=== PATIENT | male | born 1960 | race Caucasian/White ===

== ENCOUNTER 2018-03-01 05:47 | Day surgery (SDC) | payer OTHER ==
[~2018-03-01] VITALS: Ht 185.4 cm; Wt 92.0 kg
[~2018-03-01 05:47] MED LIST: Benadryl 50 mg50 MG PO; CARV25 PO; CARV3.125 PO; Cyclobenzaprine5 MG PO; EPINEPHRIN0.3 MG/0.3 IM; EPIPEN 2-P0.3 MG/0.3 IM; FURO40 PO; IBUP800 PO; LANOXIN250 MC1 PO; LISI5 PO; Norco 5-325 Ta1 EACH PO; Pepcid40 MG PO; SPIR25 PO
[2018-03-01] MEDS ORDERED: ROSU10TA PO (08:51)
== END 2018-03-01 10:48 | disposition home or self-care (01) ==
LOC: MHTC 05:47
PROC: 4A023N7 Measurement of Cardiac Sampling and Pressure, Left Heart, Percutaneous Approach (ICD-10-PCS; principal; 2018-03-01)
PROC: B211YZZ Fluoroscopy of Multiple Coronary Arteries using Other Contrast (ICD-10-PCS; principal; 2018-03-01)
DX: R07.9 Chest pain, unspecified (principal); I42.0 Dilated cardiomyopathy; R94.39 Abnormal result of other cardiovascular function study; I50.9 Heart failure, unspecified; Z87.891 Personal history of nicotine dependence
CPT/HCPCS: 93458; 99152; 99153; C1769; C1894; J1644; J2250; J3010; J7030; Q9967

== ENCOUNTER 2021-06-20 10:26 | Emergency (ER) | payer OTHER ==
[~2021-06-20] VITALS: Ht 185.4 cm; Wt 86.2 kg
[~2021-06-20 10:26] MED LIST changes: +ROSU10TA PO
== END 2021-06-20 12:10 | disposition home or self-care (01) ==
LOC: ER 10:26
DX: S81.811A Laceration without foreign body, right lower leg, initial encounter (principal); Z79.899 Other long term (current) drug therapy; W26.9XXA Contact with unspecified sharp object(s), initial encounter
CPT/HCPCS: 12002; 99282-25

== ENCOUNTER 2021-06-23 08:15 | Emergency (ER) | payer OTHER ==
[~2021-06-23] VITALS: Ht 185.4 cm; Wt 86.2 kg
[2021-06-23 09:30] LABS: Albumin, Blood 1.5 g/dL (3.4-5.0); Albumin/Globulin Ratio 0.4 (0.8-1.8); Bilirubin, Total 6.9 mg/dL (0.1-1.0); Bun/Creatinine Ratio 12.3 (12.0-20.0); Calcium, Blood 7.6 mg/dL (8.5-10.1); Creatinine, Blood 1.46 mg/dL (0.60-1.20); Potassium, Blood 4.2 mmol/L (3.5-5.5); Total Protein, Blood 5.5 g/dL (6.4-8.2)
[2021-06-23 10:11] LABS: BASOPHILS ABSOLUTE AUTO 0.05 K/mm3 (0.00-0.23); BASOPHILS PERCENT AUTO 0 % (0-2); EOSINOPHILS ABSOLUTE AUTO 0.03 K/mm3 (0.00-0.68); EOSINOPHILS PERCENT AUTO 0 % (0-6); Hematocrit 30.4 % (37.0-53.0); IMMATURE GRAN ABSOLUTE AUTO 0.09 K/mm3 (0.00-0.10); IMMATURE GRAN PERCENT AUTO 1 % (0-1); LYMPHOCYTES ABSOLUTE AUTO 1.34 K/mm3 (0.84-5.20); LYMPHOCYTES PERCENT AUTO 10 % (21-46); MONOCYTES PERCENT AUTO 8 % (4-13); Mean Corpuscular Volume 103 fL (80-100); Mean Platelet Volume 12.2 fL (9.1-12.4); NEUTROPHILS ABSOLUTE AUTO 11.01 K/mm3 (1.96-9.15); NEUTROPHILS PERCENT AUTO 81 % (41-73); NRBC ABSOLUTE 0.06 K/mm3 (0.00-0.02); NRBC Auto 0.4 /100 WBC (0.0-0.2); Platelet Count 121 K/mm3 (150-400); RDW Coefficient Variation 17.9 % (11.7-14.2); RDW Standard Deviation 66.9 fL (35.1-46.3); Red Blood Cell Count 2.95 M/mm3 (4.30-5.90); White Blood Cell Count 13.62 K/mm3 (4.00-11.30)
[2021-06-23 10:14] LABS: Hemoglobin 11.5 g/dL (13.5-17.5); Mean Corpuscular HGB Conc 37.8 g/dL (31.5-36.5)
== END 2021-06-23 10:00 | disposition left against medical advice (07) ==
LOC: ER 08:15
PROVIDERS: Physician Assistant
DX: R74.01 Elevation of levels of liver transaminase levels (principal); S81.811D Laceration without foreign body, right lower leg, subsequent encounter; Z91.030 Bee allergy status; Z88.5 Allergy status to narcotic agent; Z88.8 Allergy status to other drugs, medicaments and biological substances; Z79.899 Other long term (current) drug therapy
CPT/HCPCS: 36415; 80053; 83690; 85025; 99283; J7030

== ENCOUNTER 2021-06-25 08:47 | Inpatient (IN) | payer OTHER ==
[~2021-06-25] VITALS: Ht 185.4 cm; Wt 92.0 kg
[2021-06-25 10:21] LABS: Albumin, Blood 1.5 g/dL (3.4-5.0); Albumin/Globulin Ratio 0.4 (0.8-1.8); Bilirubin, Total 7.4 mg/dL (0.1-1.0); Calcium, Blood 7.8 mg/dL (8.5-10.1); Creatinine, Blood 1.26 mg/dL (0.60-1.20); Globulin, Blood 4.2 g/dL (2.2-4.0); Potassium, Blood 3.9 mmol/L (3.5-5.5); Total Protein, Blood 5.7 g/dL (6.4-8.2); Troponin I 0.024 ng/mL (0.000-0.040)
[2021-06-25 10:25] LABS: Hematocrit 31.9 % (37.0-53.0); Mean Corpuscular Volume 103 fL (80-100); Mean Platelet Volume 12.1 fL (9.1-12.4); NRBC ABSOLUTE 0.02 K/mm3 (0.00-0.02); NRBC Auto 0.1 /100 WBC (0.0-0.2); Platelet Count 126 K/mm3 (150-400); RDW Coefficient Variation 17.3 % (11.7-14.2); RDW Standard Deviation 65.2 fL (35.1-46.3); Red Blood Cell Count 3.11 M/mm3 (4.30-5.90); White Blood Cell Count 23.33 K/mm3 (4.00-11.30)
[2021-06-25 10:27] LABS: Hemoglobin 12.1 g/dL (13.5-17.5); Mean Corpuscular HGB 38.9 pg (26.0-34.0); Mean Corpuscular HGB Conc 37.9 g/dL (31.5-36.5)
[2021-06-25 10:39] LABS: BAND PERCENT MAN 30 % (0-8); BASOPHILS PERCENT MAN 0 % (0-2); EOSINOPHILS PERCENT MAN 0 % (0-6); LYMPHOCYTES ABSOLUTE MAN 0.46 K/mm3 (0.84-5.20); LYMPHOCYTES PERCENT MAN 2 % (21-46); MONOCYTES ABSOLUTE MAN 0.69 K/mm3 (0.16-1.47); MONOCYTES PERCENT MAN 3 % (4-13); NEUTROPHILS ABSOLUTE MAN 22.16 K/mm3 (1.96-9.15); SEG NEUTROPHILS PERCENT MAN 65 % (41-73); TOTAL CELLS COUNTED 100
[2021-06-25 10:49] LABS: International Normalized Ratio 1.86; Prothrombin Time Results 18.8 Sec (9.7-11.5)
[2021-06-25 11:04] LABS: SARS-Cov-2 (COVID-19) PCR, MMC POSITIVE (NEGATIVE)
[2021-06-25 11:38] LABS: Digoxin (Lanoxin) 0.12 ug/mL (0.80-2.00)
[2021-06-25 15:17] LABS: Source, Urine Clean Catch
[2021-06-25 15:44] LABS: Appearance, Urine Clear (Clear); Blood, Urine 1+ (Neg); Color, Urine Amber (P-Yellow); Glucose Qualitative, Urine Neg (Neg); Ketones, Urine Neg (Neg); Leukocyte Esterase, Urine Neg (Neg); Nitrite, Urine Neg (Neg); Protein, Urine 1+ (Neg); Urobilinogen, Urine 1+ (Normal)
[2021-06-25 15:52] LABS: Bilirubin, Urine 1+ (Neg)
[2021-06-25 16:03] LABS: U Amphetamine Screen Not Detected; U Barbituate Screen Not Detected; U Benzodiazapine Screen Not Detected; U Buprenorphine Screen Not Detected; U Cannabinoids Screen Not Detected; U Cocaine Screen Not Detected; U Methadone Screen Not Detected; U Methamphetamine Screen Not Detected; U Opiates Screen DETECTED; U Oxycodone Screen Not Detected; U Phencyclidine Screen Not Detected; U Propoxyphene Screen Not Detected
[2021-06-25 16:10] LABS: Bacteria Rare /hpf; Red Blood Cells, Urine 0-2 /hpf (0-2); Squamous Epithelial Cells Rare /hpf (Few)
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
[2021-06-26 04:00] LABS: BASOPHILS ABSOLUTE AUTO 0.02 K/mm3 (0.00-0.23); BASOPHILS PERCENT AUTO 0 % (0-2); EOSINOPHILS ABSOLUTE AUTO 0.04 K/mm3 (0.00-0.68); EOSINOPHILS PERCENT AUTO 0 % (0-6); Hematocrit 27.2 % (37.0-53.0); Hemoglobin 10.2 g/dL (13.5-17.5); IMMATURE GRAN ABSOLUTE AUTO 0.19 K/mm3 (0.00-0.10); IMMATURE GRAN PERCENT AUTO 1 % (0-1); LYMPHOCYTES PERCENT AUTO 12 % (21-46); MONOCYTES ABSOLUTE AUTO 1.28 K/mm3 (0.16-1.47); MONOCYTES PERCENT AUTO 8 % (4-13); Mean Corpuscular HGB 39.1 pg (26.0-34.0); Mean Corpuscular HGB Conc 37.5 g/dL (31.5-36.5); Mean Corpuscular Volume 104 fL (80-100); Mean Platelet Volume 12.2 fL (9.1-12.4); NEUTROPHILS ABSOLUTE AUTO 13.29 K/mm3 (1.96-9.15); NEUTROPHILS PERCENT AUTO 79 % (41-73); Platelet Count 117 K/mm3 (150-400); RDW Coefficient Variation 17.8 % (11.7-14.2); RDW Standard Deviation 68.3 fL (35.1-46.3); Red Blood Cell Count 2.61 M/mm3 (4.30-5.90); White Blood Cell Count 16.82 K/mm3 (4.00-11.30)
[2021-06-26 04:14] LABS: International Normalized Ratio 1.7; Prothrombin Time Results 17.2 Sec (9.7-11.5)
[2021-06-26 04:31] LABS: Albumin, Blood 1.2 g/dL (3.4-5.0); Albumin/Globulin Ratio 0.3 (0.8-1.8); Bilirubin, Total 6.4 mg/dL (0.1-1.0); Bun/Creatinine Ratio 20.8 (12.0-20.0); Calcium, Blood 7.6 mg/dL (8.5-10.1); Creatinine, Blood 1.3 mg/dL (0.60-1.20); Globulin, Blood 3.6 g/dL (2.2-4.0); Magnesium, Blood 1.5 mg/dL (1.6-2.4); Potassium, Blood 4.1 mmol/L (3.5-5.5); Total Protein, Blood 4.8 g/dL (6.4-8.2)
--- NOTE | 2021-06-26 06:08 | NUR ---
SHIFT SUMMARY NO ACUTE CHANGES THIS SHIFT. VSS. TELE READS SR 80'S, AND O2 SATS MAINTAINING OVER 95% ON RA. 03/27 PAIN IN RIGHT LEG MANAGED PER EMAR. MORE PAIN WHILE WEIGHT BEARING THAN AT REST. PT ALERT AND ORIENTED X4. DR GILES GAVE ORDERS FOR WOUND CARE ON RLE. HYDROGEL AT WOUND BASE WITH EXUDRY AND KERLEX WRAP. PT SLEPT THROUGH MOST OF NIGHT. LEFT IN BED RESTING WITH CALL ALARM AT SIDE
--- NOTE | 2021-06-26 09:00 | NUR ---
CARE ASSUMPTION PATIENT IS A/OX4. VSS. SOFT BP, WHICH PATIENT STATES IS NORMAL. TELE SR. SPO2 >90% ON RA. PATIENT REPORTS NO CHEST PAIN OR SOB. PATIENT REPORTS PAIN TO RIGHT LEG, PROVIDED PAIN MEDICATION PER EMAR THAT HELPED RELIEVE THE PAIN. PATIENT DRESSING ON RIGHT LEG WOUND WAS CHANGED DUE TO SATURATION. THE WOUND WAS CLEANED AND DRESSING REAPPLIED. THE DRAINAGE WAS YELLOW. CALL LIGHT WITHIN REACH. WILL CONTINUE TO MONITOR AND PROVIDE CARE.
[2021-06-26 09:11] LABS: HBSAG SCREEN Negative (Negative); HEP A AB, IGM Negative (Negative); HEP B CORE AB, IGM Negative (Negative); HEP B CORE AB, TOT Negative (Negative); HEP C VIRUS AB <0.1 (0.0-0.9)
--- NOTE | 2021-06-26 11:12 | NUR ---
REPORT TO MED NURSE THIS RN GAVE REPORT TO MED RN. PATIENT BELONGINGS GATHERED AND TAKEN WITH PATIENT UP TO MED FLOOR.
--- NOTE | 2021-06-26 11:43 | NUR ---
TRANSPORT PATIENT WENT TO MEDICAL FLOOR VIA WHEELCHAIR WITH ALL BELONGINGS.
--- NOTE | 2021-06-26 16:03 | NUR ---
SHIFT SUMMARY PATIENT TRANSFERRED FROM PCU THIS AFTERNOON. PATIENT SETTLED INTO ROOM. PATIENT DENIES PAIN, NAUSEA, AND SHORTNESS OF BREATH. PATIENT IS A SBA TO THE BATHROOM. PATIENT DOES INDEPENDENTLY USE THE URNINAL. PATIENT IS EATING AND DRINKING WELL. PATIENT IS PLEASANT AND COOPERATIVE WITH CARE. DRESSING TO LOWER RIGHT LEG IS DRY AND INTACT.
[2021-06-27 01:22] LABS: BASOPHILS ABSOLUTE AUTO 0.02 K/mm3 (0.00-0.23); BASOPHILS PERCENT AUTO 0 % (0-2); EOSINOPHILS PERCENT AUTO 1 % (0-6); Hematocrit 26.5 % (37.0-53.0); Hemoglobin 9.9 g/dL (13.5-17.5); IMMATURE GRAN ABSOLUTE AUTO 0.16 K/mm3 (0.00-0.10); IMMATURE GRAN PERCENT AUTO 1 % (0-1); LYMPHOCYTES ABSOLUTE AUTO 2.24 K/mm3 (0.84-5.20); LYMPHOCYTES PERCENT AUTO 15 % (21-46); MONOCYTES ABSOLUTE AUTO 1.14 K/mm3 (0.16-1.47); MONOCYTES PERCENT AUTO 8 % (4-13); Mean Corpuscular HGB Conc 37.4 g/dL (31.5-36.5); Mean Corpuscular Volume 104 fL (80-100); NEUTROPHILS ABSOLUTE AUTO 10.92 K/mm3 (1.96-9.15); NEUTROPHILS PERCENT AUTO 75 % (41-73); RDW Standard Deviation 65.4 fL (35.1-46.3); Red Blood Cell Count 2.54 M/mm3 (4.30-5.90); White Blood Cell Count 14.58 K/mm3 (4.00-11.30)
[2021-06-27 01:31] LABS: Mean Platelet Volume 11.7 fL (9.1-12.4); Platelet Count 121 K/mm3 (150-400)
[2021-06-27 01:37] LABS: Albumin, Blood 1.2 g/dL (3.4-5.0); Anion Gap 6 mmol/L (6-16); Blood Urea Nitrogen 30 mg/dL (8-24); Bun/Creatinine Ratio 28.6 (12.0-20.0); CO2, Blood 26 mmol/L (21-32); Calcium, Blood 7.4 mg/dL (8.5-10.1); Chloride, Blood 101 mmol/L (98-108); Creatinine, Blood 1.05 mg/dL (0.60-1.20); Glomerular Filtration Rate >60 (60-); Glucose, Blood 115 mg/dL (70-99); Phosphorus, Blood 1.9 mg/dL (2.5-4.9); Potassium, Blood 3.7 mmol/L (3.5-5.5); Sodium, Blood 133 mmol/L (136-145)
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
[2021-06-27] MEDS ORDERED: CEPH500 PO (14:46)
[2021-06-27] MEDS ORDERED: CARV6.25 PO (15:41)
--- NOTE | 2021-06-27 16:43 | NUR ---
DISCHARGE PATIENT WAS DISCHARGED VIA WHEELCHAIR THIS SHIFT AT 1530. PATIENT VERBALIZED UNDERSTANDING OF INSTRUCTIONS AND THEIR MEDICATIONS. WOUND CARE WAS PROVIDED TO THE PATIENT PRIOR TO THEIR DEPARTURE. WOUND CARE SUPPLIES WERE SENT HOME WITH THE PATIENT WELL.
== END 2021-06-27 16:41 | disposition home or self-care (01) | DRG 871 ==
LOC: ER 08:47 → PCU 16:08 → MEDS 16:08 → PCU 17:03 → MEDS 06-26 11:44
PROVIDERS: Family Medicine; Internal Medicine Gastroenterology; Nurse Practitioner Acute Care; Pharmacist; Physician Assistant; ADMIT Internal Medicine
PROC: 8E0ZXY6 Isolation (ICD-10-PCS; principal; 2021-06-25)
DX: A41.9 Sepsis, unspecified organism (principal); U07.1 COVID-19; L03.115 Cellulitis of right lower limb; I85.10 Secondary esophageal varices without bleeding; E87.1 Hypo-osmolality and hyponatremia; N17.9 Acute kidney failure, unspecified; I50.32 Chronic diastolic (congestive) heart failure; I11.0 Hypertensive heart disease with heart failure; R65.20 Severe sepsis without septic shock; K70.31 Alcoholic cirrhosis of liver with ascites; Z98.890 Other specified postprocedural states; Z87.891 Personal history of nicotine dependence; Z98.1 Arthrodesis status; Z88.5 Allergy status to narcotic agent; Z91.030 Bee allergy status; Z79.899 Other long term (current) drug therapy
CPT/HCPCS: 36415; 71046; 73590; 73700; 74177; 76705; 80053; 80069; 80074; 80162; 80202; 81001; 82105; 82248; 83605; 83690; 83735; 84484; 85025; 85610; 86317; 86704; 86708; 86803; 87040; 87340; 93005; 93010; 94762; 96361; 96365-59; 96366; 96367; 96375; 99283; 99285-25; A9270; J0696; J1170; J1644; J2543; J3010; J3370; J3475; J7030; J7050; J7120; Q9967; U0004

== ENCOUNTER → 2021-07-06 | Outpatient (CLI) | payer OTHER ==
[~2021-07-06] MED LIST changes: +CARV6.25 PO; +CEPH500 PO
== END ==
LOC: LAB 08:45 → LAB SHORT 08:45
DX: R30.0 Dysuria (principal); Z88.5 Allergy status to narcotic agent; Z91.038 Other insect allergy status; Z91.048 Other nonmedicinal substance allergy status
CPT/HCPCS: 87086

== ENCOUNTER → 2021-07-09 | Outpatient (CLI) | payer OTHER | END | disposition home or self-care (01) | LOC: LAB 17:40 → LAB SHORT 17:40 | DX: S81.801D Unspecified open wound, right lower leg, subsequent encounter (principal) | CPT/HCPCS: 87070; 87075; 87205 ==

== ENCOUNTER 2021-07-12 06:25 | Day surgery (SDC) | payer OTHER | END 2021-07-12 22:53 | disposition home or self-care (01) | LOC: WOUND 06:25 | DX: S81.801A Unspecified open wound, right lower leg, initial encounter (principal); X58.XXXA Exposure to other specified factors, initial encounter; I73.9 Peripheral vascular disease, unspecified | CPT/HCPCS: A9270; G0463 ==

== ENCOUNTER 2021-07-19 05:59 | Day surgery (SDC) | payer OTHER | END 2021-07-19 23:23 | disposition home or self-care (01) | LOC: WOUND 05:59 | DX: S81.801A Unspecified open wound, right lower leg, initial encounter (principal); X58.XXXA Exposure to other specified factors, initial encounter; I73.9 Peripheral vascular disease, unspecified; I87.2 Venous insufficiency (chronic) (peripheral) | CPT/HCPCS: A9270 ==

== ENCOUNTER 2021-07-26 04:57 | Day surgery (SDC) | payer OTHER | END 2021-07-26 22:45 | disposition home or self-care (01) | LOC: WOUND 04:57 | DX: S81.801A Unspecified open wound, right lower leg, initial encounter (principal); X58.XXXA Exposure to other specified factors, initial encounter; I73.9 Peripheral vascular disease, unspecified; I87.2 Venous insufficiency (chronic) (peripheral) | CPT/HCPCS: G0463 ==

== ENCOUNTER 2021-08-16 04:17 | Day surgery (SDC) | payer OTHER | END 2021-08-16 22:56 | disposition home or self-care (01) | LOC: WOUND 04:17 | DX: L97.912 Non-pressure chronic ulcer of unspecified part of right lower leg with fat layer exposed (principal); I87.311 Chronic venous hypertension (idiopathic) with ulcer of right lower extremity; I73.9 Peripheral vascular disease, unspecified; I87.2 Venous insufficiency (chronic) (peripheral) | CPT/HCPCS: A9270; G0463 ==

== ENCOUNTER 2021-08-24 05:45 | Day surgery (SDC) | payer OTHER ==
[~2021-08-24 05:45] MED LIST changes: -EPINEPHRIN0.3 MG/0.3 IM; +EPIPEN0.3 MG/0.3 IM
== END 2021-08-24 22:55 | disposition home or self-care (01) ==
LOC: WOUND 05:45
DX: I87.311 Chronic venous hypertension (idiopathic) with ulcer of right lower extremity (principal); L97.912 Non-pressure chronic ulcer of unspecified part of right lower leg with fat layer exposed; I87.2 Venous insufficiency (chronic) (peripheral)
CPT/HCPCS: G0463

== ENCOUNTER 2021-08-30 04:39 | Day surgery (SDC) | payer OTHER ==
[~2021-08-30 04:39] MED LIST changes: +EPINEPHRIN0.3 MG/0.3 IM; -EPIPEN0.3 MG/0.3 IM
== END 2021-08-30 22:53 | disposition home or self-care (01) ==
LOC: WOUND 04:39
DX: L97.912 Non-pressure chronic ulcer of unspecified part of right lower leg with fat layer exposed (principal); I87.311 Chronic venous hypertension (idiopathic) with ulcer of right lower extremity; I73.9 Peripheral vascular disease, unspecified; I87.2 Venous insufficiency (chronic) (peripheral)
CPT/HCPCS: A9270; G0463

== ENCOUNTER 2021-09-15 11:51 | Inpatient (IN) | payer OTHER ==
[~2021-09-15] VITALS: Ht 185.4 cm; Wt 85.7 kg
[~2021-09-15 11:51] MED LIST changes: -EPINEPHRIN0.3 MG/0.3 IM; +EPIPEN0.3 MG/0.3 IM
[2021-09-15 12:33] LABS: BASOPHILS ABSOLUTE AUTO 0.07 K/mm3 (0.00-0.23); BASOPHILS PERCENT AUTO 1 % (0-2); EOSINOPHILS ABSOLUTE AUTO 0.03 K/mm3 (0.00-0.68); EOSINOPHILS PERCENT AUTO 0 % (0-6); Hematocrit 38.2 % (37.0-53.0); Hemoglobin 13.8 g/dL (13.5-17.5); IMMATURE GRAN ABSOLUTE AUTO 0.03 K/mm3 (0.00-0.10); IMMATURE GRAN PERCENT AUTO 0 % (0-1); LYMPHOCYTES PERCENT AUTO 21 % (21-46); MONOCYTES ABSOLUTE AUTO 1.08 K/mm3 (0.16-1.47); MONOCYTES PERCENT AUTO 9 % (4-13); Mean Corpuscular HGB 35.4 pg (26.0-34.0); Mean Corpuscular HGB Conc 36.1 g/dL (31.5-36.5); Mean Corpuscular Volume 98 fL (80-100); Mean Platelet Volume 11.2 fL (9.1-12.4); NEUTROPHILS ABSOLUTE AUTO 8.05 K/mm3 (1.96-9.15); NEUTROPHILS PERCENT AUTO 68 % (41-73); Platelet Count 107 K/mm3 (150-400); RDW Coefficient Variation 14.9 % (11.7-14.2); RDW Standard Deviation 53.7 fL (35.1-46.3); White Blood Cell Count 11.76 K/mm3 (4.00-11.30)
[2021-09-15 12:53] LABS: International Normalized Ratio 1.73; Prothrombin Time Results 17.5 Sec (9.7-11.5)
[2021-09-15 12:58] LABS: Alanine Aminotransfer (ALT/SGP 66 U/L (12-78); Albumin, Blood 1.8 g/dL (3.4-5.0); Albumin/Globulin Ratio 0.3 (0.8-1.8); Alk Phos 369 U/L (50-136); Anion Gap 8 mmol/L (6-16); Aspartate Aminotrans (AST/SGOT 264 U/L (12-37); Bilirubin, Total 4.7 mg/dL (0.1-1.0); Blood Urea Nitrogen 5 mg/dL (8-24); Bun/Creatinine Ratio 6.5 (12.0-20.0); CO2, Blood 28 mmol/L (21-32); Calcium, Blood 7.7 mg/dL (8.5-10.1); Chloride, Blood 101 mmol/L (98-108); Creatinine, Blood 0.76 mg/dL (0.60-1.20); Globulin, Blood 6.2 g/dL (2.2-4.0); Glomerular Filtration Rate >60 (60-); Glucose, Blood 113 mg/dL (70-99); Potassium, Blood 3.3 mmol/L (3.5-5.5); Sodium, Blood 137 mmol/L (136-145)
[2021-09-15 14:10] LABS: Source, Urine Clean Catch
[2021-09-15 14:14] LABS: Appearance, Urine Hazy (Clear); Blood, Urine 1+ (Neg); Color, Urine Brown (P-Yellow); Glucose Qualitative, Urine Neg (Neg); Ketones, Urine 1+ (Neg); Leukocyte Esterase, Urine 1+ (Neg); Nitrite, Urine Pos (Neg); Protein, Urine 2+ (Neg); Specific Gravity, Urine 1.015 (1.003-1.022); Urobilinogen, Urine 3+ (Normal)
[2021-09-15 14:33] LABS: Bilirubin, Urine 3+ (Neg)
[2021-09-15 14:34] LABS: Bacteria Mod /hpf; Squamous Epithelial Cells Rare /hpf (Few)
[2021-09-15 14:35] LABS: Amorphous Light (0-Heavy); Granular Casts 0-2 /lpf (0); Hyaline Casts 0-2 /lpf (0-2); Mucus Heavy (0-Heavy)
[2021-09-15] MEDS ORDERED: FLUTICASONE P15.8 M1 (21:15)
[2021-09-15] MEDS ORDERED: METO2.5 PO (21:16)
[2021-09-16 04:54] LABS: BASOPHILS ABSOLUTE AUTO 0.06 K/mm3 (0.00-0.23); BASOPHILS PERCENT AUTO 1 % (0-2); EOSINOPHILS ABSOLUTE AUTO 0.07 K/mm3 (0.00-0.68); EOSINOPHILS PERCENT AUTO 1 % (0-6); Hematocrit 29.7 % (37.0-53.0); Hemoglobin 11.1 g/dL (13.5-17.5); IMMATURE GRAN ABSOLUTE AUTO 0.05 K/mm3 (0.00-0.10); IMMATURE GRAN PERCENT AUTO 0 % (0-1); LYMPHOCYTES ABSOLUTE AUTO 3.12 K/mm3 (0.84-5.20); LYMPHOCYTES PERCENT AUTO 24 % (21-46); MONOCYTES PERCENT AUTO 10 % (4-13); Mean Corpuscular HGB Conc 37.4 g/dL (31.5-36.5); Mean Corpuscular Volume 96 fL (80-100); Mean Platelet Volume 11.5 fL (9.1-12.4); NEUTROPHILS PERCENT AUTO 65 % (41-73); Platelet Count 86 K/mm3 (150-400); RDW Coefficient Variation 15.4 % (11.7-14.2); RDW Standard Deviation 53.6 fL (35.1-46.3); Red Blood Cell Count 3.08 M/mm3 (4.30-5.90)
--- NOTE | 2021-09-16 06:30 | NUR ---
PATIENT HAS HAD AN UNEVENTFUL NIGHT. ARRIVED FROM ER NEEDING TWO ROUNDS OF k+. COULDN'T TOLERATE AT THE RATE OF 50 DECREASED RATE TO 25 PATIENT WAS ABLE TO TOLERATE. A7O X4. INDEPENDENT IN ROOM. ABDOMEN SEVERELY DISTENDED. PATIENT IS TO HAVE A PARACENTESIS TODAY. VITALS REVIEWED PATIENTS HEART RATE IS MILDLY ELEVATED. CALL LIGHT IN REACH BED IN LOWEST POSITION.
[2021-09-16 06:47] LABS: Alanine Aminotransfer (ALT/SGP 43 U/L (12-78); Albumin, Blood 1.7 g/dL (3.4-5.0); Albumin/Globulin Ratio 0.4 (0.8-1.8); Alk Phos 269 U/L (50-136); Anion Gap 10 mmol/L (6-16); Aspartate Aminotrans (AST/SGOT 192 U/L (12-37); Bilirubin, Total 5.5 mg/dL (0.1-1.0); Blood Urea Nitrogen 7 mg/dL (8-24); Bun/Creatinine Ratio 7.4 (12.0-20.0); CO2, Blood 25 mmol/L (21-32); Calcium, Blood 7.2 mg/dL (8.5-10.1); Chloride, Blood 104 mmol/L (98-108); Creatinine, Blood 0.95 mg/dL (0.60-1.20); Globulin, Blood 4.7 g/dL (2.2-4.0); Glomerular Filtration Rate >60 (60-); Glucose, Blood 63 mg/dL (70-99); Potassium, Blood 3.5 mmol/L (3.5-5.5); Sodium, Blood 139 mmol/L (136-145); Total Protein, Blood 6.4 g/dL (6.4-8.2)
[2021-09-16 10:45] LABS: Automated BF WBC Count 0.128 K/mm3 (0-999); Body Fluid WBC Count 128 /mm3 (0-999)
[2021-09-16 11:16] LABS: Lactate Dehydrogenase, Body Fl 68 U/L
[2021-09-16 11:19] LABS: Albumin, Body Fluid 0.1 g/dL
[2021-09-16 11:32] LABS: RBC Count, Body Fluid 97 /mm3 (0-0)
[2021-09-16 11:57] LABS: Appearance, Body Fluid Hazy (Clear); Color, Body Fluid Yellow (None-Yellow); Total Cell Count, Body Fluid 100
--- NOTE | 2021-09-16 12:10 | NUR ---
Discussed cirrhosis diet recommendations with patient. Discussed benefits of a low sodium diet and reviewed foods high in sodium. Pt reported that he cooks most of his own foods, so discussed alternative seasoning options. Educated pt on elevated kcal and protein needs. Discussed eating several small meals to meet needs iso early satiety. Discussed benefit of a bedtime snack that contains CHO. Average compliance expected.
--- NOTE | 2021-09-16 17:57 | NUR ---
SHIFT SUMMARY PATIENT IS ALERT AND ORIENTATED X3-4. PATIENT HAD AN UNEVENTFUL DAY WITH NO ACUTE EVENTS THIS SHIFT. PATIENT HAS HAD A PARACENTHESIS DONE TODAY WITH 4LITERS OFF. NO ACUTE ISSUES THIS SHIFT. PATIENT IS INDEPENDENT IN THE ROOM. VITAL SIGNS REVIEWED. PATIENTS HR HAS BEEN ELEVATED IN MORNING BUT HAS RESOLVED. CALL LIGHT IN PLACE. WILL MONITOR UNTIL SHIFT CHANGE.
[2021-09-17 05:02] LABS: BASOPHILS ABSOLUTE AUTO 0.06 K/mm3 (0.00-0.23); BASOPHILS PERCENT AUTO 1 % (0-2); EOSINOPHILS ABSOLUTE AUTO 0.19 K/mm3 (0.00-0.68); EOSINOPHILS PERCENT AUTO 2 % (0-6); Hematocrit 29.9 % (37.0-53.0); Hemoglobin 10.7 g/dL (13.5-17.5); IMMATURE GRAN ABSOLUTE AUTO 0.03 K/mm3 (0.00-0.10); IMMATURE GRAN PERCENT AUTO 0 % (0-1); LYMPHOCYTES ABSOLUTE AUTO 2.87 K/mm3 (0.84-5.20); LYMPHOCYTES PERCENT AUTO 27 % (21-46); MONOCYTES ABSOLUTE AUTO 1.09 K/mm3 (0.16-1.47); MONOCYTES PERCENT AUTO 10 % (4-13); Mean Corpuscular HGB 35.2 pg (26.0-34.0); Mean Corpuscular HGB Conc 35.8 g/dL (31.5-36.5); Mean Corpuscular Volume 98 fL (80-100); Mean Platelet Volume 11.7 fL (9.1-12.4); NEUTROPHILS ABSOLUTE AUTO 6.22 K/mm3 (1.96-9.15); NEUTROPHILS PERCENT AUTO 60 % (41-73); Platelet Count 84 K/mm3 (150-400); RDW Coefficient Variation 15.2 % (11.7-14.2); RDW Standard Deviation 54.3 fL (35.1-46.3); Red Blood Cell Count 3.04 M/mm3 (4.30-5.90); White Blood Cell Count 10.46 K/mm3 (4.00-11.30)
--- NOTE | 2021-09-17 06:03 | NUR ---
PT IS A/OX4. INDEPENDENT IS ROOM TO BR. A NEW US PARACENTESIS IS ORDERED FOR 09/17 IN THE AM. HE HAS BEEN NPO SINCE MIDNIGHT. ABDOMINAL DISTENTION/PAIN IS REDUCED AND THE PT STATES THAT HE HAS RELIEF. HE REMAINS ON RA, NO TELE, AND WE'LL CONTINUE TO MONITOR.
[2021-09-17 06:05] LABS: Alanine Aminotransfer (ALT/SGP 38 U/L (12-78); Albumin, Blood 1.5 g/dL (3.4-5.0); Albumin/Globulin Ratio 0.3 (0.8-1.8); Alk Phos 231 U/L (50-136); Anion Gap 6 mmol/L (6-16); Aspartate Aminotrans (AST/SGOT 153 U/L (12-37); Blood Urea Nitrogen 11 mg/dL (8-24); Bun/Creatinine Ratio 10.6 (12.0-20.0); CO2, Blood 28 mmol/L (21-32); Calcium, Blood 7.3 mg/dL (8.5-10.1); Chloride, Blood 104 mmol/L (98-108); Creatinine, Blood 1.04 mg/dL (0.60-1.20); Globulin, Blood 4.4 g/dL (2.2-4.0); Glomerular Filtration Rate >60 (60-); Glucose, Blood 81 mg/dL (70-99); Potassium, Blood 3.4 mmol/L (3.5-5.5); Sodium, Blood 138 mmol/L (136-145); Total Protein, Blood 5.9 g/dL (6.4-8.2)
--- NOTE | 2021-09-17 17:43 | NUR ---
SUMMARY PT SITTING UP IN BED EATING DINNER, PT HAS BEEN PLEASANT AND COOPERATIVE WITH CARE T/O THE DAY, INDEPENDENT IN THE ROOM, PT HAD A PARACENTESIS TODAY, THEY TOOK OFF 4.5 L OF FLUID, PT STATES HE FEELS MUCH BETTER AND IS HOPEFUL TO DC HOME TOMORROW, VSS, WILL CONT TO MONITOR
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
[2021-09-18 05:07] LABS: BASOPHILS ABSOLUTE AUTO 0.04 K/mm3 (0.00-0.23); BASOPHILS PERCENT AUTO 0 % (0-2); EOSINOPHILS ABSOLUTE AUTO 0.18 K/mm3 (0.00-0.68); EOSINOPHILS PERCENT AUTO 2 % (0-6); Hematocrit 30.1 % (37.0-53.0); IMMATURE GRAN ABSOLUTE AUTO 0.05 K/mm3 (0.00-0.10); IMMATURE GRAN PERCENT AUTO 0 % (0-1); LYMPHOCYTES ABSOLUTE AUTO 2.86 K/mm3 (0.84-5.20); LYMPHOCYTES PERCENT AUTO 26 % (21-46); MONOCYTES ABSOLUTE AUTO 1.44 K/mm3 (0.16-1.47); MONOCYTES PERCENT AUTO 13 % (4-13); Mean Corpuscular HGB 35.3 pg (26.0-34.0); Mean Corpuscular HGB Conc 36.5 g/dL (31.5-36.5); Mean Corpuscular Volume 97 fL (80-100); Mean Platelet Volume 12.3 fL (9.1-12.4); NEUTROPHILS ABSOLUTE AUTO 6.63 K/mm3 (1.96-9.15); NEUTROPHILS PERCENT AUTO 59 % (41-73); Platelet Count 79 K/mm3 (150-400); RDW Coefficient Variation 15.3 % (11.7-14.2); RDW Standard Deviation 53.4 fL (35.1-46.3); Red Blood Cell Count 3.12 M/mm3 (4.30-5.90)
[2021-09-18 06:18] LABS: Albumin, Blood 1.6 g/dL (3.4-5.0); Albumin/Globulin Ratio 0.4 (0.8-1.8); Bilirubin, Total 5.2 mg/dL (0.1-1.0); Bun/Creatinine Ratio 9.8 (12.0-20.0); Calcium, Blood 7.3 mg/dL (8.5-10.1); Creatinine, Blood 1.33 mg/dL (0.60-1.20); Globulin, Blood 4.3 g/dL (2.2-4.0); Magnesium, Blood 1.7 mg/dL (1.6-2.4); Potassium, Blood 3.7 mmol/L (3.5-5.5); Total Protein, Blood 5.9 g/dL (6.4-8.2)
[2021-09-18] MEDS ORDERED: SPIR50 PO (11:43)
[2021-09-18] MEDS ORDERED: CARV6.25 PO (11:44)
[2021-09-18] MEDS ORDERED: VISBIOME 112.51 EACH PO (11:45)
[2021-09-18] MEDS ORDERED: FURO20 PO (11:45)
[2021-09-18] MEDS ORDERED: LACT10SY PO (11:46)
== END 2021-09-18 12:05 | disposition home or self-care (01) | DRG 433 ==
LOC: ER 11:51 → ERHOLD 11:52 → MEDS 11:52
PROVIDERS: Family Medicine; Physician Assistant; ADMIT Internal Medicine
PROC: 0W9G3ZX Drainage of Peritoneal Cavity, Percutaneous Approach, Diagnostic (ICD-10-PCS; principal; 2021-09-17)
PROC: 0W9G3ZZ Drainage of Peritoneal Cavity, Percutaneous Approach (ICD-10-PCS; 2021-09-18)
DX: K70.31 Alcoholic cirrhosis of liver with ascites (principal); D68.9 Coagulation defect, unspecified; I50.32 Chronic diastolic (congestive) heart failure; K75.81 Nonalcoholic steatohepatitis (NASH); E83.42 Hypomagnesemia; I11.0 Hypertensive heart disease with heart failure; F10.20 Alcohol dependence, uncomplicated; E87.6 Hypokalemia; E78.5 Hyperlipidemia, unspecified; D64.9 Anemia, unspecified; Z98.1 Arthrodesis status; Z71.41 Alcohol abuse counseling and surveillance of alcoholic; I25.2 Old myocardial infarction; Z98.890 Other specified postprocedural states; Z79.899 Other long term (current) drug therapy
CPT/HCPCS: 36415; 49083; 74176; 80053; 81001; 82042; 82390; 82947; 83615; 83690; 83735; 83880; 84157; 85025; 85610; 86015; 86381; 87070; 87086; 87205; 88108; 88305; 89051; 93005; 93010; 93306; 94760; 96365; 96375; 96376; 99285-25; A9270; G0378; J0696; J1885; J2405; J3475; J3480; J7030; J7050; P9046

== ENCOUNTER 2021-11-03 11:45 | Day surgery (SDC) | payer OTHER ==
[~2021-11-03] VITALS: Ht 185.4 cm; Wt 90.4 kg
[~2021-11-03 11:45] MED LIST changes: +FLUTICASONE P15.8 M1; +FURO20 PO; +LACT10SY PO; +METO2.5 PO; +SPIR50 PO; +VISBIOME 112.51 EACH PO
== END 2021-11-03 13:55 | disposition home or self-care (01) ==
LOC: ORSCSDS 11:45
PROVIDERS: Internal Medicine Gastroenterology
PROC: 0DB68ZX Excision of Stomach, Via Natural or Artificial Opening Endoscopic, Diagnostic (ICD-10-PCS; principal; 2021-11-03 13:00)
DX: I85.00 Esophageal varices without bleeding (principal); K70.31 Alcoholic cirrhosis of liver with ascites; I10 Essential (primary) hypertension; K76.6 Portal hypertension; K31.89 Other diseases of stomach and duodenum; Z86.16 Personal history of COVID-19; E87.1 Hypo-osmolality and hyponatremia; I50.9 Heart failure, unspecified; Z87.891 Personal history of nicotine dependence; Z79.899 Other long term (current) drug therapy
CPT/HCPCS: 88305; 88342; J2250; J2704; J7120

== ENCOUNTER 2022-01-23 10:11 | Emergency (ER) | payer OTHER ==
[~2022-01-23] VITALS: Ht 185.4 cm; Wt 85.3 kg
== END 2022-01-23 11:34 | disposition home or self-care (01) ==
LOC: ER 10:11
DX: N50.89 Other specified disorders of the male genital organs (principal); N50.82 Scrotal pain; K70.31 Alcoholic cirrhosis of liver with ascites; I11.0 Hypertensive heart disease with heart failure; I50.9 Heart failure, unspecified; F17.200 Nicotine dependence, unspecified, uncomplicated; V89.2XXA Person injured in unspecified motor-vehicle accident, traffic, initial encounter; Z91.038 Other insect allergy status; Z88.5 Allergy status to narcotic agent; Z91.048 Other nonmedicinal substance allergy status; Z79.899 Other long term (current) drug therapy
CPT/HCPCS: 51798

== ENCOUNTER 2022-01-27 19:05 | Inpatient (IN) | payer OTHER ==
[~2022-01-27] VITALS: Ht 185.4 cm; Wt 82.5 kg
[2022-01-27 22:51] LABS: BASOPHILS ABSOLUTE AUTO 0.08 K/mm3 (0.00-0.23); BASOPHILS PERCENT AUTO 1 % (0-2); EOSINOPHILS ABSOLUTE AUTO 0.07 K/mm3 (0.00-0.68); EOSINOPHILS PERCENT AUTO 1 % (0-6); Hematocrit 31.7 % (37.0-53.0); IMMATURE GRAN ABSOLUTE AUTO 0.03 K/mm3 (0.00-0.10); IMMATURE GRAN PERCENT AUTO 0 % (0-1); LYMPHOCYTES ABSOLUTE AUTO 2.81 K/mm3 (0.84-5.20); LYMPHOCYTES PERCENT AUTO 26 % (21-46); MONOCYTES ABSOLUTE AUTO 1.17 K/mm3 (0.16-1.47); MONOCYTES PERCENT AUTO 11 % (4-13); Mean Corpuscular HGB 37.2 pg (26.0-34.0); Mean Corpuscular HGB Conc 34.7 g/dL (31.5-36.5); Mean Corpuscular Volume 107 fL (80-100); Mean Platelet Volume 10.8 fL (9.1-12.4); NEUTROPHILS ABSOLUTE AUTO 6.53 K/mm3 (1.96-9.15); NEUTROPHILS PERCENT AUTO 61 % (41-73); Platelet Count 142 K/mm3 (150-400); RDW Coefficient Variation 15.7 % (11.7-14.2); RDW Standard Deviation 61.7 fL (35.1-46.3); Red Blood Cell Count 2.96 M/mm3 (4.30-5.90); White Blood Cell Count 10.69 K/mm3 (4.00-11.30)
[2022-01-27 23:12] LABS: Source, Urine Voided
[2022-01-27 23:13] LABS: Albumin/Globulin Ratio 0.4 (0.8-1.8); Bilirubin, Total 2.2 mg/dL (0.1-1.0); Bun/Creatinine Ratio 12.7 (12.0-20.0); C-Reactive Protein, High Sens. 9.97 mg/L (0.000-3.000); Calcium, Blood 7.7 mg/dL (8.5-10.1); Creatinine, Blood 0.63 mg/dL (0.60-1.20); Globulin, Blood 4.8 g/dL (2.2-4.0); Potassium, Blood 3.6 mmol/L (3.5-5.5); Total Protein, Blood 6.8 g/dL (6.4-8.2)
[2022-01-27 23:15] LABS: Blood, Urine 1+ (Neg); Glucose Qualitative, Urine Neg (Neg); Ketones, Urine 1+ (Neg); Leukocyte Esterase, Urine 1+ (Neg); Nitrite, Urine Neg (Neg); Protein, Urine 2+ (Neg); Urobilinogen, Urine 4+ (Normal)
[2022-01-27 23:20] LABS: Appearance, Urine Hazy (Clear); Bilirubin, Urine 2+ (Neg); Color, Urine Amber (P-Yellow)
[2022-01-27 23:22] LABS: Amorphous Light (0-Heavy); Bacteria Few /hpf; Hyaline Casts 0-2 /lpf (0-2); Mucus Mod (0-Heavy); Red Blood Cells, Urine Rare /hpf (0-2); Squamous Epithelial Cells Not Seen /hpf (Few); White Blood Cells, Urine 0-2 /hpf (0-5)
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
--- NOTE | 2022-01-28 01:44 | NUR ---
PIPERACILLIN BROUGHT UP BY ER - THEY WERENT ABLE TO ADMINISTER DOCUMENTED ON ER, PER [facility]. PIPERACILLIN INFUSING NOW - SPOKE TO ZAIRE IN PHARMACY, UPDATED ON REASON WHY, PER ER EXPLANATION, THAT THIS RN WOULD BE ADMINISTERING IV. WILL BEGIN LR INFUSING AFTER PIPERACILLIN FINISHED.
[2022-01-28 05:14] LABS: BASOPHILS ABSOLUTE AUTO 0.07 K/mm3 (0.00-0.23); BASOPHILS PERCENT AUTO 1 % (0-2); EOSINOPHILS PERCENT AUTO 1 % (0-6); Hematocrit 28.2 % (37.0-53.0); Hemoglobin 9.8 g/dL (13.5-17.5); IMMATURE GRAN ABSOLUTE AUTO 0.02 K/mm3 (0.00-0.10); IMMATURE GRAN PERCENT AUTO 0 % (0-1); LYMPHOCYTES ABSOLUTE AUTO 2.18 K/mm3 (0.84-5.20); LYMPHOCYTES PERCENT AUTO 22 % (21-46); MONOCYTES ABSOLUTE AUTO 1.23 K/mm3 (0.16-1.47); MONOCYTES PERCENT AUTO 12 % (4-13); Mean Corpuscular HGB Conc 34.8 g/dL (31.5-36.5); Mean Corpuscular Volume 106 fL (80-100); Mean Platelet Volume 10.9 fL (9.1-12.4); NEUTROPHILS PERCENT AUTO 64 % (41-73); Platelet Count 121 K/mm3 (150-400); RDW Coefficient Variation 15.5 % (11.7-14.2); Red Blood Cell Count 2.65 M/mm3 (4.30-5.90)
[2022-01-28 05:41] LABS: Albumin, Blood 1.7 g/dL (3.4-5.0); Albumin/Globulin Ratio 0.4 (0.8-1.8); Bun/Creatinine Ratio 10.6 (12.0-20.0); Calcium, Blood 7.2 mg/dL (8.5-10.1); Creatinine, Blood 0.66 mg/dL (0.60-1.20); Globulin, Blood 4.3 g/dL (2.2-4.0); Potassium, Blood 3.2 mmol/L (3.5-5.5)
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
--- NOTE | 2022-01-28 14:52 | NUR ---
AGREE WITH STUDENT DOCUMENTATION AND NOTES.
--- NOTE | 2022-01-28 16:48 | NUR ---
PT COOPERATIFVE AND PLEASANT WITH CARE. A/O X3. NO TELE. NO MURMUR NOTED. H/R REGULAR. ON ROOM AIR. LUNGS CLEAR BILAT. EASY BREATHING AND UNLABORED. AMBULATES TO RESTROOM WITH FWW INDEPENDENTLY. USES URINAL IN BED. SCROTAL EDEMA AND WEEPING PRESENT. REDNESS AND TENDER. MEDICATED PER EMAR FOR PAIN. WOUND CLINIC CALLED FOR A CONSULT WITH PT. BED IN LOW POSITION, CALL LIGHT IN REACH, CALLS APPROPRIATLY.
--- NOTE | 2022-01-28 17:59 | NUR ---
HEADING MAKER TO BEDSIDE. IDEAS FOR SCROTAL SWELLING, SKIN CARE. DISCUSSED WITH HEADING MAKER AND DR MCNEIL. OKAYED MIX SILICONE CREAM, BLUE TOP, TO MIX WITH MICONAZOLE CREAM. APPLY TO SCROTAL AREA. BID. ORDERS MADE
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
[2022-01-29 10:13] LABS: Hematocrit 30.7 % (37.0-53.0); Hemoglobin 11.1 g/dL (13.5-17.5); Mean Corpuscular HGB 37.2 pg (26.0-34.0); Mean Corpuscular HGB Conc 36.2 g/dL (31.5-36.5); Mean Corpuscular Volume 103 fL (80-100); Mean Platelet Volume 10.5 fL (9.1-12.4); Platelet Count 112 K/mm3 (150-400); RDW Coefficient Variation 14.2 % (11.7-14.2); RDW Standard Deviation 53.4 fL (35.1-46.3); Red Blood Cell Count 2.98 M/mm3 (4.30-5.90); White Blood Cell Count 11.19 K/mm3 (4.00-11.30)
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
[2022-01-29 10:34] LABS: Bun/Creatinine Ratio 9.8 (12.0-20.0); Calcium, Blood 7.6 mg/dL (8.5-10.1); Creatinine, Blood 0.72 mg/dL (0.60-1.20); Potassium, Blood 3.2 mmol/L (3.5-5.5)
--- NOTE | 2022-01-29 17:55 | NUR ---
PT PLEASANT AND COOPERATIVE THIS SHIFT. A/OX4. C/O SCROTAL PAIN. MEDICATED PER EMAR. LUNGS CLEAR BILATERALLY. ON ROOM AIR. ON TELE. NSR PER TELE. NO MURMUR NOTED. URINATES INDEPENDENTLEY WITH URINAL AND AMBULATES TO RESTROOM INDEPENDENTLEY. SCROTUM IS RED AND BURNING AND WEEPING. MICONAZOLE APPLIED WITH BLUE TOP CREAM. PT STATES THIS RELIEVES SOME PAIN. WILL CONTINUE TO MONITOR. BED IN LOW POSITION, CALL LIGHT IN REACH, CALLS APPROPRIALTEY.
--- NOTE | 2022-01-29 19:28 | NUR ---
AGREE WITH STUDENT DOCUMENTATION AND NOTES.
--- NOTE | 2022-01-30 04:56 | NUR ---
PT RECEIVED PAIN MEDICATION FOR SCROTAL DISCOMFORT. PT INDEPENDENT IN ROOM. TELEMETRY CALLED REGARDING HR IN 130'S, PT WAS IN BED WATCHING TV. NO OTHER TACHYCARDIA NOTED.
[2022-01-30 05:38] LABS: Albumin, Blood 1.8 g/dL (3.4-5.0); Anion Gap 3 mmol/L (6-16); Blood Urea Nitrogen 7 mg/dL (8-24); Bun/Creatinine Ratio 8.2 (12.0-20.0); CO2, Blood 34 mmol/L (21-32); Calcium, Blood 7.2 mg/dL (8.5-10.1); Chloride, Blood 95 mmol/L (98-108); Creatinine, Blood 0.85 mg/dL (0.60-1.20); Glomerular Filtration Rate 99 (60-); Glucose, Blood 111 mg/dL (70-99); Phosphorus, Blood 3.8 mg/dL (2.5-4.9); Potassium, Blood 3.1 mmol/L (3.5-5.5); Sodium, Blood 132 mmol/L (136-145)
--- NOTE | 2022-01-30 18:18 | NUR ---
SHIFT SUMMARY PT INDEPENDENT IN ROOM. REPORTED THIS EVENING THAT HIS SCROTUM SEEMS TO BE A BIT LESS PAINFUL THAN THIS MORNING. SWELLING HAS BECOME LESS THAN ORIGINAL PICTURE WITH LEATHERY WRINKLED SKIN THAT REMAINS A PINK/RED. STILL HAS CHEST PAIN WITH DEEP BREATHS AND COUGHING
--- NOTE | 2022-01-31 05:19 | NUR ---
SHIFT SUMMARY AOX4. VSS. TELE NSR c PAC HR 91. HR INCREASES TO 130-140'S WHEN UP AMBULATING OR IN PAIN. REPORTED 8/10 PAIN IN SCROTUM, MEDICATED 2X c NORCO PLUS APPLIED BARRIER & ANTIFUNGAL CREAM. RUCW TENDER & PAINFUL TO TOUCH. RECIEVING IV VANCO FOR CELLULITIS. UP IND IN ROOM. DENIES N/V OR DYSPNEA. CALL LIGHT IN REACH & PT ABLE TO MAKE NEEDS KNOWN.
[2022-01-31 10:28] LABS: Hematocrit 35.2 % (37.0-53.0); Hemoglobin 12.4 g/dL (13.5-17.5); Mean Corpuscular HGB 36.9 pg (26.0-34.0); Mean Corpuscular HGB Conc 35.2 g/dL (31.5-36.5); Mean Corpuscular Volume 105 fL (80-100); Mean Platelet Volume 10.4 fL (9.1-12.4); Platelet Count 128 K/mm3 (150-400); RDW Coefficient Variation 14.8 % (11.7-14.2); RDW Standard Deviation 56.1 fL (35.1-46.3); Red Blood Cell Count 3.36 M/mm3 (4.30-5.90); White Blood Cell Count 11.32 K/mm3 (4.00-11.30)
[2022-01-31 10:42] LABS: Anion Gap 7 mmol/L (6-16); Blood Urea Nitrogen 8 mg/dL (8-24); Bun/Creatinine Ratio 8.5 (12.0-20.0); CO2, Blood 31 mmol/L (21-32); Calcium, Blood 7.6 mg/dL (8.5-10.1); Chloride, Blood 93 mmol/L (98-108); Creatinine, Blood 0.94 mg/dL (0.60-1.20); Glomerular Filtration Rate 93 (60-); Glucose, Blood 110 mg/dL (70-99); Potassium, Blood 3.6 mmol/L (3.5-5.5); Sodium, Blood 131 mmol/L (136-145); Vancomycin, Trough 24.1 ug/mL (5.0-10.0)
--- NOTE | 2022-01-31 16:10 | NUR ---
PATIENT A/OX4, UP INDEPENDENTLY IN RROM WITH FWW. TOLERATING LOW FAT DIET. PAIN TO STERNUM AND SCROTUM, MEDICATING PER EMAR. ALSO, TESSALON PEARLS GIVEN TO TREAT COUGH. VSS, ON RA. SR WITH PVC'S ON TELE. SWELLING TO SCROTUM HAS DECREASED SIGNIFICANTLY COMPLARED TO ADMIT PHOTOS ON CHART. PATIENT IS CALM AND COOPERATIVE WITH CARE AND ABLE TO MAKE NEEDS KNOWN.
[2022-02-01 05:15] LABS: Calcium, Blood 7.7 mg/dL (8.5-10.1); Creatinine, Blood 1.11 mg/dL (0.60-1.20); Potassium, Blood 3.7 mmol/L (3.5-5.5)
--- NOTE | 2022-02-01 07:24 | NUR ---
SHIFT SUMMARY NO ACUTE CHANGES THIS SHIFT. AOX4. VSS. TELE NSR. REPORTS 7-04/27 PAIN IN SCROTUM, MEDICATED 1X c NORCO & PT ABLE TO REST WELL T/O NIGHT. NOTICED REDNESS & SWELLING HAS DECREASED ON SCROTUM FROM PREVIOUS NIGHT. CALL LIGHT IN REACH.
[2022-02-01 10:36] LABS: Vancomycin, Trough 19.2 ug/mL (5.0-10.0)
--- NOTE | 2022-02-01 18:38 | NUR ---
PATIENT A/OX4, UP INDEPENDENTLY IN ROOM. VSS, ON RA. SWELLING AND REDNESS TO SCROTUM CONTINUES TO IMPROVE. BARRIER CREAM AND NYSTATIN APPLIED TO TREAT. 18G IV TO EVERT WNL AND SL BETWEEN ABX. TOLERATING LOW FAT DIET. MIRALAX GIVEN TO TREAT CONTIPATION, PATIENT REFUSED SUPPOSITORY. PATIENT IS HAVING DAILY BM'S, BUT REPORTS THEY ARE HARD AND VERY SMALL. HYDROCODONE USED TO TREAT SCROTAL AND STERNAL PAIN WITH STATED RELIEF. PATIENT IS CALM AND COOPERATIVE WITH CARE AND ABLE TO MAKE NEEDS KNOWN.
--- NOTE | 2022-02-02 07:34 | NUR ---
SHIFT SUMMARY: NO SIGNIFNCAT EVENTS ON NOC. PATIENT INDEPENDENT IN ROOM. COMPLIANT WITH PLAN OF CARE. PAIN TREATED PER EMAR. A&OX4. TELE = NSR. EDEMA AND ERRYHTMEA TO SCROTOM IMPROVING, SMALL AMOUNTS OF DRAINAGE NOTED.
--- NOTE | 2022-02-02 18:06 | NUR ---
SHIFT SUMMARY PT IS ALERT AND ORIENTEDx4, REPORTS PAIN HAS BEEN BETTER TODAY. THIS MORNING PT WAS REPORTING CONSITIPATION. PT WAS RECEPTIVE TO SUPPOSITORY PO MEDICATIONS HAVE BEEN UNSUCCESFULL. PT HAD A LARGE BM THIS MORNING AFTER SUPPOSITORY. PT IS INDEPENDANT IN THE ROOM. VITALS HAVE BEEN STABLE. SINUS RHYTHM/SINUS TACH WITH ACTIVITY ON THE MONITOR.
[2022-02-03 04:08] LABS: Hematocrit 33.7 % (37.0-53.0); Hemoglobin 12.1 g/dL (13.5-17.5); Mean Corpuscular HGB 37.1 pg (26.0-34.0); Mean Corpuscular HGB Conc 35.9 g/dL (31.5-36.5); Mean Corpuscular Volume 103 fL (80-100); Mean Platelet Volume 10.4 fL (9.1-12.4); Platelet Count 186 K/mm3 (150-400); RDW Coefficient Variation 14.8 % (11.7-14.2); RDW Standard Deviation 56.8 fL (35.1-46.3); Red Blood Cell Count 3.26 M/mm3 (4.30-5.90); White Blood Cell Count 11.32 K/mm3 (4.00-11.30)
[2022-02-03 04:33] LABS: Bun/Creatinine Ratio 11.5 (12.0-20.0); Calcium, Blood 8.3 mg/dL (8.5-10.1); Creatinine, Blood 1.13 mg/dL (0.60-1.20); Potassium, Blood 3.9 mmol/L (3.5-5.5)
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
--- NOTE | 2022-02-03 08:50 | NUR ---
NOTIFIED BY TELEMETRY THAT PT'S HR SUSTAINING IN 120'S. LYING IN BED, ALERT. STATED HAVING CHEST PAIN, DIFFERENT THAN HE'S BEEN HAVING WITH STERNAL FX, BUT SIMILAR TO INTERMITTENT CHEST DISCOMFORT THAT HE'S BEEN HAVING SINCE HIS AL IN 2017. VS: 115/86, HR 115-130, 98% ON RA, BREATHING SHALLOW @ 24-29, STATED PAIN 8/10, SLIGHTLY DIAPHORETIC. DR. GIMENEZ AT BEDSIDE, ORDERED STAT EKG AND TROPONIIN X 1. WILL CONTINUE TO MONITOR.
[2022-02-03] MEDS ORDERED: ALPR.25 PO (16:49)
[2022-02-03] MEDS ORDERED: CEPH500 PO (16:50)
[2022-02-03] MEDS ORDERED: VISBIOME 112.51 EACH PO (16:51)
--- NOTE | 2022-02-03 18:10 | NUR ---
SHIFT SUMMARY- PT INDEPENDANT IN ROOM THROUGHOUT SHIFT. PT COOPERATIVE WITH ALL NEEDED CARE. PT ANXIOUS AND IN PAIN MEDICATED PER EMAR. PT RESTED COMFORTABLY WITH CALL LIGHT AT BEDSIDE. PT DISCAHRGE WITH PAPERWORK AND HARD SCRIPS IN HAND. PT TRANSFERED VIA WHEELCHAIR TO [employer] FOR HOME DISCHARGE.
--- NOTE | 2022-02-03 18:37 | NUR ---
PATIENT DISCHARGED TO HOME, WILL DRIVE HIMSELF. IV SALINE LOCK REMOVED BY Andree RAHMAN RN. DENIES DIZZINESS AND "FEELING FUZZY," STATES HE IS ABLE TO DRIVE. GAIT IS STEADY. VERBALIZED UNDERSTANDING OF D/C INSTRUCTIONS. OFF UNIT VIA W/C TO SECOND FLOOR PATIENT ENTRANCE AT 1730.
== END 2022-02-03 17:51 | disposition home or self-care (01) | DRG 872 ==
LOC: ER 19:05 → MEDS 23:50 → ER 01-28 00:21 → MEDS 01-28 00:57 → UNDODEPER 01-28 01:03 → MEDS 02-03 17:51
PROVIDERS: Emergency Medicine; Internal Medicine; ADMIT Internal Medicine
DX: A41.9 Sepsis, unspecified organism (principal); S22.20XA Unspecified fracture of sternum, initial encounter for closed fracture; S32.018A Other fracture of first lumbar vertebra, initial encounter for closed fracture; S32.028A Other fracture of second lumbar vertebra, initial encounter for closed fracture; S32.038A Other fracture of third lumbar vertebra, initial encounter for closed fracture; I50.42 Chronic combined systolic (congestive) and diastolic (congestive) heart failure; E87.1 Hypo-osmolality and hyponatremia; E87.2 Acidosis; N49.2 Inflammatory disorders of scrotum; E83.51 Hypocalcemia; D63.8 Anemia in other chronic diseases classified elsewhere; I11.0 Hypertensive heart disease with heart failure; K70.31 Alcoholic cirrhosis of liver with ascites; E87.6 Hypokalemia; F17.210 Nicotine dependence, cigarettes, uncomplicated; E78.5 Hyperlipidemia, unspecified; Z88.5 Allergy status to narcotic agent; Z91.030 Bee allergy status; Z88.8 Allergy status to other drugs, medicaments and biological substances; Z79.899 Other long term (current) drug therapy; V89.2XXA Person injured in unspecified motor-vehicle accident, traffic, initial encounter; Y92.410 Unspecified street and highway as the place of occurrence of the external cause
CPT/HCPCS: 36415; 72193; 76870; 80048; 80053; 80069; 80202; 81001; 83605; 83880; 84145; 84484; 85025; 85027; 85651; 86141; 87040; 87086; 93005; 93010; 94760; 96365-59; 96366; 96368; 97110; 97116; 97162; 97530; 99285-25; A9270; J0696; J1170; J1650; J2543; J3370; J7040; J7050; J7060; J7120; Q9967